=== PATIENT | female | born 1975 | race African-American/Black ===

== ENCOUNTER 2018-01-07 06:49 | Emergency (ER) | payer BC, MEDICAID, OTHER, SELFPAY ==
[~2018-01-07] VITALS: Ht 172.7 cm; Wt 116.5 kg
[2018-01-07] MEDS ORDERED: LIDOCAINE-MPF 2%, 2ML ONE (07:21)
[2018-01-07] MEDS ORDERED: LIDOCAINE 2%, 20ML SQ ONE (07:30)
== END 2018-01-07 08:28 | disposition home or self-care (01) ==
LOC: ED 08:00
DX: K08.89 Other specified disorders of teeth and supporting structures (principal); R11.0 Nausea
CPT/HCPCS: 64400; 99284